=== PATIENT | male | born 1965 | race Caucasian/White ===

== ENCOUNTER 2020-10-06 11:03 | Emergency (ER) | payer BC, SELFPAY ==
[2020-10-06 11:05] VITALS: BP 155/85; PULSE 94; RESP 14; TEMP 36.7; O2SAT 95; BMI 33.7
--- NOTE | 2020-10-06 11:30 | HMH.EDUTC ---
[facility] [place] Clinical Impression: Exposure to COVID-19 virus, Fever blister Disposition: Home, Self-Care Condition on Discharge: Good Instructions: DI for Cold Sores, DI for COVID-19 (Suspected or Confirmed ), Preventing the Spread of Coronavirus Discharge Instructions Additional Instructions: Drink plenty of fluids. Take tylenol for pain or fever. Return if you begin to have difficulty breathing. Follow up with your regular doctor. GO TO THE ER FOR ANY WORSENING SYMPTOMS Prescriptions: Acyclovir [Zovirax 5% ointment 5gm] 1 applicatio TP 5XDAY 4 Days #1 tube Transmission Status: Received by [id number] Referrals: Juan Torres MD [Primary Care Provider] - Time of Disposition: 11:40 Medical Decision Making - Medical Records Medical records reviewed: No: I reviewed the patient's medical records. - [place] Inquiry Pt receiving controlled substance: No Vital Signs: 10/06/20 11:05 10/06/20 11:43 Temperature 98.1 F 98.1 F Temperature Source Oral Pulse Rate 94 H Pulse Rate [Right Brachial] 94 H Respiratory Rate 14 14 Blood Pressure 155/85 H Blood Pressure [Right Arm] 155/85 H Blood Pressure Mean [Right Arm] 108 Blood Pressure Source [Right Arm] Automatic Cuff Blood Pressure Position [Right Arm] Sitting 02 Sat by Pulse Oximetry 95 Oxygen Delivery Method Room Air [facility] [place] - General Stated complaint: covid exposure Time Seen by Provider: 10/06/20 11:30 Mode of Arrival: Ambulatory Source of Information: Patient Limitations: No Limitations Description of Symptoms (Recalled from Triage Doc. by RN): PATIENT REQUESTING COVID TEST D/T EXPOSURE. C/O SINUS CONGESTION X 1 DAYS AND FEVER BLISTERS THAT STARTED THURSDAY HEENT Symptoms (Recalled from RN notes): Yes Resp Symptoms (Recalled from RN notes): No Skin Symptoms (Recalled from RN notes): Yes MS Symptoms (Recalled from RN notes): No Functional Status (Recalled from RN notes): WNL - History of Present Illness Provider Complaint: He states that for the past 1 day he has had some sinus congestion and sinus drainage. He also had a fever blister on is top lip that has been there for the past 3 days. He was exposed to covid at his job. - Related Data Home Medications Medication Instructions Recorded Confirmed Atorvastatin Calcium [Atorvastatin 10 mg PO DAILY 02/20/18 10/06/20 10mg Tab] Metformin HCl [Glucophage 500mg 1,000 mg PO DAILY 02/20/18 10/06/20 Tablet] Previous Rx's Medication Instructions Recorded Acyclovir [Zovirax 5% ointment 5gm] 1 applicatio TP 5XDAY 4 Days #1 10/06/20 tube Allergies Allergy/AdvReac Type Severity Reaction Status Date / Time No Known Allergies Allergy Verified 02/20/18 10:11 - Worker's Comp Is this a Worker's Comp case?: No [facility] History - Hepatitis A Screen Drug use history?: No High risk sexual behaviors?: No History of sexually transmitted infection?: No Currently employed?: No Childcare worker?: No Do you have indoor plumbing?: Yes Do you have electricity?: Yes Attestation statement:: This patient has been screened for Hepatitis A risk factors. I have reviewed the patient's past medical history: Yes Medical History: Reports:: Diabetes Mellitus Type 2 Denies:: Diabetes Mellitus Type 1 - Social History Smoking Status: Never smoker Alcohol Intake: never Occupational Status: other ROS Obtained: Yes All systems reviewed & no additional complaints - Constitutional Constitutional: Reports system reviewed and no additional complaints, except as docu - Eyes Eyes: Reports system reviewed and no additional complaints, except as docu - ENT Ears, Nose, Mouth, and Throat: Reports system reviewed and no additional complaints, except as docu - Cardiovascular Cardiovascular: Reports system reviewed and no additional complaints, except as docu - Respiratory Respiratory: Reports system reviewed and no additional complaints, except as docu - [place]
[2020-10-06 11:43] VITALS: BP 155/85; PULSE 94; RESP 14; TEMP 36.7; O2SAT 95
--- NOTE | 2020-10-07 09:52 | PC.NURSE ---
patient notified of positive covid results
== END 2020-10-06 11:45 | disposition home or self-care (01) ==
PROVIDERS: Emergency Provider Nurse Practitioner Family; PCP Family Medicine
DX: U07.1 COVID-19 (principal); E11.9 Type 2 diabetes mellitus without complications; E78.5 Hyperlipidemia, unspecified; B00.1 Herpesviral vesicular dermatitis; Z79.899 Other long term (current) drug therapy
CPT/HCPCS: 99202; G0463; U0003

== ENCOUNTER 2022-10-22 13:11 | Observation (INO) | payer BC, SELFPAY ==
[2022-10-22] VITALS (10 sets, daily range): BP systolic 132–174; BP diastolic 72–92; PULSE 112–137; RESP 18–25; TEMP 36.4–36.9; O2SAT 95–100; BMI 34.0; BMI 31.4; BMI 32.1
[2022-10-22 13:57] LABS: Alanine Aminotransferase 34 U/L (12-78); Albumin Level 5.8 g/dl (3.5-5.0); Albumin/Globulin Ratio 1.4 (1.1-1.8); Alkaline Phosphatase 80 U/L (38-126); Anion Gap 36.9 mEq/L (5-15); Aspartate Amino Transferase 35 U/L (17-59); Blood Urea Nitrogen 21 mg/dl (9-20); Calcium 9.1 mg/dl (8.4-10.2); Chloride 99 mmol/L (98-107); Creatinine Clearance Estimated 75 mL/min (50-200); Estimated Glomerular Filt Rate 48 ml/min (>60); GFR (African American) 59 ML/MIN (>60); Globulin 4.2 g/dL (1.3-3.2); Glucose 276 mg/dl (74-100); Potassium 3.9 mmoL/L (3.5-5.1); Sodium 138 mmol/L (136-145)
[2022-10-22 14:04] LABS: Lipase 293 U/L (23-300)
[2022-10-22 14:04] LABS: Carbon Dioxide 6 mmol/L (22.0-30.0)
--- NOTE | 2022-10-22 14:04 | HMH.EDGENADL ---
Discharge Plan Disposition Patient Disposition: Admitted As Inpatient Condition: Fair Clinical Impressions Clinical Impression: Diabetic keto-acidosis Discharge ED Provider: Amando Ontiveros General Adult HPI General Chief complaint: Nausea/Vomiting/Diarrhea Stated complaint: vomiting blood, can't sleep Time Seen by Provider: 10/22/22 13:48 Mode of Arrival: Ambulatory Limitations: No Limitations Description of Symptoms (Recalled from ER Triage Doc. by RN): PT STARTED ON NEW DIABETES MEDICATION LAST WEEK ON THURSDAY. PT C/O N/V/D AND DECREASED APPETITE. History of Present Illness HPI narrative: Patient presents with a 2 to 3-day history of vomiting and diarrhea. Symptoms again approximately 2 days after starting new medication for his diabetes. Symptoms are described as moderate without exacerbating alleviating factors. He states its been a couple of days since he had diarrhea but the vomiting persists. He denies abdominal pain he denies fever. Related Data Home Medications Medication Instructions Recorded Confirmed atorvastatin 10 mg tablet 10 mg PO DAILY Cholesterol 02/20/18 10/06/20 metformin 500 mg tablet 1,000 mg PO DAILY Diabetes 02/20/18 10/06/20 Previous Rx's Medication Instructions Recorded acyclovir 5 % topical ointment 1 applicatio TP 5XDAY 4 days #1 10/06/20 tube Allergies Allergy/AdvReac Type Severity Reaction Status Date / Time No Known Allergies Allergy Verified 02/20/18 10:11 [facility] Disclaimer: The information contained in this section may have been updated after the patient was seen, as this information can be updated by other users. Social History Smoking Status: Never smoker alcohol intake: never current occupational status: other Travel in the last 8 weeks: None ROS Obtained: Yes All systems reviewed & no additional complaints except as documented Physical Exam General General appearance: alert and in no apparent distress Head Head exam: atraumatic Eye Eye exam: Present normal appearance ENT ENT exam: Present normal exam and normal oropharynx Neck Neck exam: Present normal inspection Chest Chest inspection: Present normal inspection Respiratory Respiratory exam: Present normal lung sounds bilaterally and respiratory distress Cardiovascular Cardiovascular exam: Present normal rhythm and tachycardia Abdominal Exam Abdominal exam: Present soft; Absent tenderness Extremities Exam Extremities exam: Present normal inspection Back Exam Back exam: Present normal inspection Neurological Exam Neurological exam: Present alert and oriented X3 Psychiatric Psychiatric exam: Present normal affect Skin Skin exam: Present warm and dry Medical Decision Making [place] Inquiry Pt receiving controlled substance: No Vital Signs: 10/22/22 13:13 10/22/22 14:15 Temperature 98.0 F Temperature Source Oral Pulse Rate 124 H Pulse Rate [Radial] 126 H Respiratory Rate 18 Blood Pressure 147/85 H Blood Pressure [Right Arm] 153/83 H Blood Pressure Mean [Right Arm] 106 Blood Pressure Source [Right Arm] Automatic Cuff Blood Pressure Position [Right Arm] Sitting 02 Sat by Pulse Oximetry 98 95 Oxygen Delivery Method Room Air Lab Data Lab Results 10/22/22 11:30: Sodium 138, Potassium 3.9, Chloride 99, Carbon Dioxide 6 L*, Anion Gap 36.9 H, BUN 21 H, Creatinine 1.50 H, Estimated Creat Clear 75, Estimated GFR 48 L, Est GFR ( Amer) 59, Glucose 276 H, Calcium 9.1, Total Bilirubin 1.0, AST 35, ALT 34, Alkaline Phosphatase 80, Total Protein 10.0 H, Albumin 5.8 H, Globulin 4.2 H, Albumin/Globulin Ratio 1.4 10/22/22 11:30: WBC 8.4, RBC 6.09, Hgb 18.2 H, Hct 55.8 H, MCV 91.6, MCH 29.9, MCHC 32.7, RDW 13.7, Plt Count 330, MPV 8.8, Neut % (Auto) 88.8 H, Lymph % (Auto) 7.1 L, [place] % (Auto) 3.7, Eos % (Auto) 0.0 L, Baso % (Auto) 0.3, Neut # (Auto) 7.5, Lymph # (Auto) 0.6 L, [place] # (Auto) 0.3, Eos # (Auto) 0.0, Baso # (Au
[2022-10-22 14:09] LABS: Basophils % 0.3 % (0.1-2.0); Monocytes # 0.3 K/mm3 (0.1-1.0); Red Cell Distribution Width 13.7 % (11.5-17.5)
--- NOTE | 2022-10-22 14:09 | PC.NURSE ---
Marquita from lab called critical on patient, report taken and repeated to verify CO2 6
[2022-10-22 14:15] LABS: Hematocrit 55.8 % (42.0-52.0); Lymphocytes # 0.6 K/mm3 (0.7-4.5); Lymphocytes % 7.1 % (10-50); Mean Corpuscular HGB Conc 32.7 g/dL (31.8-35.4); Mean Corpuscular Hemoglobin 29.9 pg (27.0-31.2); Mean Corpuscular Volume 91.6 fl (80-94); Mean Platelet Volume 8.8 fl (7.4-10.4); Monocytes % 3.7 % (1.7-9.3); Neutrophils # 7.5 K/mm3 (1.8-7.8); Neutrophils % 88.8 % (37.0-80.0); Platelet Count 330 K/mm3 (142-424); Red Blood Count 6.09 M/mm3 (4.60-6.20); White Blood Count 8.4 K/mm3 (4.8-10.8)
[2022-10-22 14:16] LABS: Hemoglobin 18.2 g/dL (14.1-18.0); MANUAL DIFFERENTIAL MANUAL DIFFERENTIAL (MANUAL DIFF)
[2022-10-22 14:29] LABS: Lymphocytes % 10 % (10-50); Monocytes % 1 % (2-9); Neutrophils % 89 % (42-76); Platelet Estimate Normal; RBC Morphology Normal; Total Cells Counted 100
[2022-10-22 15:18] LABS: ABG Base Excess -19.9 mmol/L (-2.4-2.3); ABG HCO3 7.9 mmhg (22.0-26.0); ABG Oxygen Saturation 98 % (90-100); ABG PH 7.22 mmol/L (7.35-7.45); ABG PO2 99.7 mmhg (80-100); ABG TCO2 8.5 mmhg (23-27)
[2022-10-22 15:20] LABS: Oxygen room air %
[2022-10-22 15:21] LABS: ABG PCO2 19.9 mmhg (35.0-45.0)
--- NOTE | 2022-10-22 15:31 | PC.NURSE ---
DR. HAIDER SPEAKING WITH DR. GILL
[2022-10-22 15:33] LABS: Coronavirus 19, PCR Not Detected (NotDetected); Influenza A, PCR Not Detected (NotDetected); Influenza B, PCR Not Detected (NotDetected)
--- NOTE | 2022-10-22 15:34 | PC.NURSE ---
Shelli from respiratory called criticals on patient. pH7.22, CO2 19.9, Bicarb7.9, Miguel Ángel [id number], Lactic 3.4
--- NOTE | 2022-10-22 15:44 | PC.NURSE ---
CARE MANAGEMENT NOTIFIED OF ADMISSION
--- NOTE | 2022-10-22 16:30 | PC.NURSE ---
SPOKE WITH HOUSE FOR ADMISSION TO STEP DOWN ROOM
[2022-10-22 16:31] LABS: POC Glucose,Bedside 147 (70-110)
--- NOTE | 2022-10-22 16:36 | PC.NURSE ---
INSULIN GTT OFF AT THIS TIME. FSBS 147. PER ED MD VERBAL ORDER
--- NOTE | 2022-10-22 16:38 | PC.NURSE ---
REPORT GIVEN TO Nghia BRICENO RN
--- NOTE | 2022-10-22 17:58 | PC.NURSE ---
arrived to floor by wheelchair from ED
[2022-10-22 18:28] LABS: POC Glucose,Bedside 173 (70-110)
--- NOTE | 2022-10-22 18:39 | EXP.HP ---
History of Present Illness *Admission Date: 10/22/22 *Reason for visit:: vomiting *History of present illness: 57 year old male patient of [facility] presented to [facility] ER today complaining of a 3 day history of vomiting and abdominal pain. The first two days he had a couple of episodes of diarrhea, but none today. He did not a small amount of bright red blood in his emesis this morning. Patient has a history of type 2 diabetes. His A1c was 9.5% in the office last week so he was started on Rybelsus 3 mg daily and his Xigduo dose was double to the maximum dose. [facility] Disclaimer: The information contained in this section may have been updated after the patient was seen, as this information can be updated by other users. Medical History (Updated 10/22/22 @ 18:47 by Juan Torres MD) Diabetes mellitus, type 2 Hyperlipidemia Hypertension Non morbid obesity Family History (Updated 10/22/22 @ 18:19 by Peace Wooten RN) Family history of cancer Family history of hypertension Family history of diabetes mellitus type II Social History (Updated 10/22/22 @ 18:19 by Peace Wooten RN) Smoking Status: Never smoker alcohol intake: never current occupational status: retired and other Travel in the last 8 weeks: None Review of Systems Constitutional Constitutional: Denies chills, Denies fever(s) and Reports weakness (generalized) Eyes Eyes: Denies blurry vision ENT Ears, Nose, Mouth, and Throat: Denies epistaxis *Cardiovascular Cardiovascular: Denies chest pain *Respiratory Respiratory: Denies cough *Gastrointestinal Gastrointestinal: Reports as per HPI *Genitourinary Genitourinary: Denies difficulty urinating *Musculoskeletal Musculoskeletal: Denies arthralgias Integumentary/Breasts Skin/Breast: Denies rash *Neurologic Neurologic: Reports weakness (generalized) Meds Home Medications and Allergies Home Medications Medication Instructions Recorded Confirmed Type atorvastatin 10 mg tablet 10 mg PO DAILY Cholesterol 02/20/18 10/22/22 History dapagliflozin 5 mg-metformin ER 5 - 1,000 tab PO ONCE Diabetes 10/22/22 10/22/22 History 1,000 mg tablet,extended release 24hr (Xigduo XR) irbesartan 300 300 tab PO DAILY Hypertension 10/22/22 10/22/22 History mg-hydrochlorothiazide 12.5 mg tablet semaglutide 7 mg tablet (Rybelsus) 3 mg PO DAILY Diabetes 10/22/22 10/22/22 History New Prescriptions to Start Prescriptions: Allergies Allergy/AdvReac Type Severity Reaction Status Date / Time No Known Allergies Allergy Verified 02/20/18 10:11 Exam Data for Last 24 hours Vital signs and Labs for Last 24 Hours: Temp Pulse Resp BP Pulse Ox 98.5 F 112 H 18 132/73 98 10/22/22 17:55 10/22/22 17:55 10/22/22 17:55 10/22/22 17:55 10/22/22 16:30 Laboratory Results - last 24 hr 10/22/22 11:30: Sodium 138, Potassium 3.9, Chloride 99, Carbon Dioxide 6 L*, Anion Gap 36.9 H, BUN 21 H, Creatinine 1.50 H, Estimated Creat Clear 75, Estimated GFR 48 L, Est GFR ( Amer) 59, Glucose 276 H, Calcium 9.1, Total Bilirubin 1.0, AST 35, ALT 34, Alkaline Phosphatase 80, Total Protein 10.0 H, Albumin 5.8 H, Globulin 4.2 H, Albumin/Globulin Ratio 1.4 10/22/22 11:30: WBC 8.4, RBC 6.09, Hgb 18.2 H, Hct 55.8 H, MCV 91.6, MCH 29.9, MCHC 32.7, RDW 13.7, Plt Count 330, MPV 8.8, Neut % (Auto) 88.8 H, Lymph % (Auto) 7.1 L, [place] % (Auto) 3.7, Eos % (Auto) 0.0 L, Baso % (Auto) 0.3, Neut # (Auto) 7.5, Lymph # (Auto) 0.6 L, [place] # (Auto) 0.3, Eos # (Auto) 0.0, Baso # (Auto) 0.0, Total Counted 100, Neutrophils % (Manual) 89 H, Lymphocytes % (Manual) 10, Monocytes % (Manual) 1 L, Platelet Estimate Normal, RBC Morphology Normal 10/22/22 13:30: Lipase 293 10/22/22 14:50: SARS-CoV-2 (PCR) Not detected, Influenza A Untype (PCR) Not detected, Influenza Type B (PCR) Not detected 10/22/22 14:59: Specimen Source l brachial, O2 % room air, ABG pH 7.22 L*, ABG pCO2 19.9 L, ABG pO2 99.7, ABG HCO3 7.9 L, ABG Total CO
[2022-10-23] VITALS (15 sets, daily range): BP systolic 114–143; BP diastolic 65–85; PULSE 81–124; RESP 16–24; TEMP 36.4–36.9; O2SAT 95–99; BMI 32.3; BMI 36.6
--- NOTE | 2022-10-23 04:59 | PC.NURSE ---
pt restless this shift, pt states he can't sleep, offered tylenol and pt declined, telemetry reveals sinus tach, pts hr noted to be up to 150 upon ambulation at bedside to urinate, pt states he still feels weak, b/p stable, no acute distress, skin pwd, no other issues or concerns noted at this time.
[2022-10-23 06:30] LABS: POC Glucose,Bedside 194 (70-110)
[2022-10-23 06:30] LABS: POC Glucose,Bedside 172 (70-110)
[2022-10-23 06:40] LABS: Basophils % 0.3 % (0.1-2.0)
[2022-10-23 06:47] LABS: Chloride 109 mmol/L (98-107); Hematocrit 47.8 % (42.0-52.0); Lymphocytes # 1.1 K/mm3 (0.7-4.5); Lymphocytes % 12.7 % (10-50); Mean Corpuscular HGB Conc 32.8 g/dL (31.8-35.4); Mean Corpuscular Hemoglobin 29.4 pg (27.0-31.2); Mean Corpuscular Volume 89.4 fl (80-94); Mean Platelet Volume 8.4 fl (7.4-10.4); Monocytes # 0.6 K/mm3 (0.1-1.0); Monocytes % 6.1 % (1.7-9.3); Neutrophils # 7.3 K/mm3 (1.8-7.8); Neutrophils % 80.9 % (37.0-80.0); Platelet Count 260 K/mm3 (142-424); Potassium 3.6 mmoL/L (3.5-5.1); Red Blood Count 5.34 M/mm3 (4.60-6.20); Sodium 137 mmol/L (136-145)
[2022-10-23 06:48] LABS: Hemoglobin 15.7 g/dL (14.1-18.0)
[2022-10-23 06:50] LABS: Anion Gap 17.6 mEq/L (5-15); Blood Urea Nitrogen 16 mg/dl (9-20); Calcium 7.9 mg/dl (8.4-10.2); Carbon Dioxide 14 mmol/L (22.0-30.0); Creatinine Clearance Estimated 116 mL/min (50-200); Estimated Glomerular Filt Rate 77 ml/min (>60); GFR (African American) 94 ML/MIN (>60); Glucose 181 mg/dl (74-100)
--- NOTE | 2022-10-23 08:23 | EXP.ACUTE.PN ---
Subjective *Date: 10/23/22 *Time: 09:00 Interval history: Patient is feeling better this am. He denies any pain and has been eating without problems. Medical Exam Vital signs and Labs for Last 24 Hours: Vital Signs Temp Pulse Pulse Resp BP BP Pulse Ox 10/23/22 08:00 100 H 20 137/77 97 10/23/22 07:38 97.7 F 10/23/22 06:00 98 H 24 119/65 98 10/23/22 05:00 97 H 24 120/70 99 10/23/22 04:00 97.7 F 10/23/22 04:00 110 H 10/23/22 04:00 101 H 21 117/67 97 10/23/22 03:55 101 H 96 10/23/22 00:00 112 H 10/23/22 02:00 114 H 16 120/68 95 10/23/22 00:00 124 H 21 131/72 98 10/23/22 00:00 98.3 F 10/22/22 20:00 113 H 10/22/22 22:00 123 H 24 174/92 H 98 10/22/22 20:00 120 H 97 10/22/22 20:00 97.5 F L 122 H 25 H 149/72 H 99 10/22/22 20:00 97.5 F L 10/22/22 17:55 98.5 F 112 H 18 132/73 10/22/22 16:30 137 H 132/73 98 10/22/22 16:00 131 H 144/73 H 99 10/22/22 15:30 127 H 148/81 H 98 10/22/22 15:00 123 H 139/77 100 10/22/22 14:30 127 H 143/74 H 100 10/22/22 14:15 124 H 147/85 H 95 10/22/22 13:13 98.0 F 126 H 18 153/83 H 98 Intake and Output 10/22/22 10/23/22 10/23/22 19:59 03:59 11:59 Intake Total 1646 / 1646 Output Total 0 / 1600 1600 / 1600 Balance 0 / 46 -1600 / 46 1646 / 46 Intake: Intake, Oral Amount 240 / 240 Intake, Total IV Amount 1406 / 1406 D5W/0.45% NaCl w/20mEq KCL 1, 1406 / 1406 000 ml @ 125 mls/hr IV .Q8H [facility] Rx#:[id number] Output: Output, Urine Amount 0 / 1600 1600 / 1600 Other: Number of Unmeasured Voids 1 0 Weight 218 lb 0.595 oz 218 lb 4.122 oz Patient Weight 10/23/22 11:59 Weight 218 lb 4.122 oz Laboratory Results - last 24 hr 10/22/22 11:30: Sodium 138, Potassium 3.9, Chloride 99, Carbon Dioxide 6 L*, Anion Gap 36.9 H, BUN 21 H, Creatinine 1.50 H, Estimated Creat Clear 75, Estimated GFR 48 L, Est GFR ( Amer) 59, Glucose 276 H, Calcium 9.1, Total Bilirubin 1.0, AST 35, ALT 34, Alkaline Phosphatase 80, Total Protein 10.0 H, Albumin 5.8 H, Globulin 4.2 H, Albumin/Globulin Ratio 1.4 10/22/22 11:30: WBC 8.4, RBC 6.09, Hgb 18.2 H, Hct 55.8 H, MCV 91.6, MCH 29.9, MCHC 32.7, RDW 13.7, Plt Count 330, MPV 8.8, Neut % (Auto) 88.8 H, Lymph % (Auto) 7.1 L, [place] % (Auto) 3.7, Eos % (Auto) 0.0 L, Baso % (Auto) 0.3, Neut # (Auto) 7.5, Lymph # (Auto) 0.6 L, [place] # (Auto) 0.3, Eos # (Auto) 0.0, Baso # (Auto) 0.0, Total Counted 100, Neutrophils % (Manual) 89 H, Lymphocytes % (Manual) 10, Monocytes % (Manual) 1 L, Platelet Estimate Normal, RBC Morphology Normal 10/22/22 13:30: Lipase 293 10/22/22 14:50: SARS-CoV-2 (PCR) Not detected, Influenza A Untype (PCR) Not detected, Influenza Type B (PCR) Not detected 10/22/22 14:59: Specimen Source l brachial, O2 % room air, ABG pH 7.22 L*, ABG pCO2 19.9 L, ABG pO2 99.7, ABG HCO3 7.9 L, ABG Total CO2 8.5 L, ABG O2 Saturation 98, ABG Base Excess -19.9 L 10/22/22 16:24: POC Glucose 147 H 10/22/22 18:15: POC Glucose 173 H 10/22/22 21:17: POC Glucose 194 H 10/23/22 05:35: WBC 9.0, RBC 5.34, Hgb 15.7 D, Hct 47.8, MCV 89.4, MCH 29.4, MCHC 32.8, RDW 14.0, Plt Count 260, MPV 8.4, Neut % (Auto) 80.9 H, Lymph % (Auto) 12.7, [place] % (Auto) 6.1, Eos % (Auto) 0.0 L, Baso % (Auto) 0.3, Neut # (Auto) 7.3, Lymph # (Auto) 1.1, [place] # (Auto) 0.6, Eos # (Auto) 0.0, Baso # (Auto) 0.0 10/23/22 05:35: Sodium 137, Potassium 3.6, Chloride 109 H, Carbon Dioxide 14 L, Anion Gap 17.6 H, BUN 16, Creatinine 1.00 D, Estimated Creat Clear 116, Estimated GFR 77, Est GFR ( Amer) 94 D, Glucose 181 H D, Calcium 7.9 L 10/23/22 06:18: POC Glucose 172 H I & O for Labs for Last 24 Hours: Intake & Output 10/20/22 10/21/22 10/22/22 10/23/22 11:59 11:59 11:59 11:59 Intake Total 1646 / 1646 Output Total 1600 / 1600 Balance 46 / 46 Weight 218 lb 4.122 oz Respirator
--- NOTE | 2022-10-23 08:39 | P.CONPHA_ITS ---
Pharmacy Intervention Comments: HOME MEDICATION LIST VERIFIED USING LIST FROM COUNTS INCLUDE 234 BEDS AT THE [facility]
--- NOTE | 2022-10-23 08:39 | HMH.PHAINT1 ---
Pharmacy Intervention Comments: HOME MEDICATION LIST VERIFIED USING LIST FROM [facility]
[2022-10-23 11:10] LABS: POC Glucose,Bedside 172 (70-110)
--- NOTE | 2022-10-23 13:37 | DIET.NUTRFU ---
Patient tolerated full liquids for both breakfast and lunch, consulted provider to advance diet, approved diabetic diet. Provided multiple diabetic handouts to help with compliance. Also provided contact information and process to see RD as outpatient.
[2022-10-23 17:46] LABS: POC Glucose,Bedside 157 (70-110)
--- NOTE | 2022-10-23 19:51 | PC.NURSE ---
pt has rested t/o shift, no complaints of pain or nausea, FS have been 172 and 157, pt was provided on education on administering insulin to himself, pt was able to give his dose of lantus, pt had no questions about the process
[2022-10-24] VITALS: PULSE 88; PULSE 89
--- NOTE | 2022-10-24 03:12 | PC.NURSE ---
PATIENT TEACHING ONGOING ON INSULIN ADMINISTRATION. PATIENT DENIES PAIN/DISCOMFORT. INDEPENDENT. SINUS RHYTHM ON TELEMETRY.
[2022-10-24 04:00] VITALS: BP 116/72; PULSE 90; PULSE 98; RESP 16; TEMP 36.9; O2SAT 98; BMI 30.6
[2022-10-24 04:28] VITALS: PULSE 90
[2022-10-24 05:18] LABS: POC Glucose,Bedside 140 (70-110)
[2022-10-24 06:35] LABS: Basophils % 0.5 % (0.1-2.0); Eosinophils % 0.3 % (0.1-12.0); Hematocrit 39.8 % (42.0-52.0); Hemoglobin 13.4 g/dL (14.1-18.0); Lymphocytes # 1.7 K/mm3 (0.7-4.5); Lymphocytes % 22.4 % (10-50); Mean Corpuscular HGB Conc 33.7 g/dL (31.8-35.4); Mean Corpuscular Hemoglobin 29.6 pg (27.0-31.2); Mean Corpuscular Volume 87.7 fl (80-94); Mean Platelet Volume 7.6 fl (7.4-10.4); Monocytes # 0.3 K/mm3 (0.1-1.0); Monocytes % 3.8 % (1.7-9.3); Neutrophils # 5.4 K/mm3 (1.8-7.8); Platelet Count 179 K/mm3 (142-424); Red Blood Count 4.54 M/mm3 (4.60-6.20); Red Cell Distribution Width 14.1 % (11.5-17.5); White Blood Count 7.4 K/mm3 (4.8-10.8)
[2022-10-24 06:36] LABS: Chloride 110 mmol/L (98-107); Sodium 138 mmol/L (136-145)
[2022-10-24 06:37] LABS: Potassium 3.4 mmoL/L (3.5-5.1)
[2022-10-24 06:39] LABS: Blood Urea Nitrogen 13 mg/dl (9-20); Creatinine Clearance Estimated 171 mL/min (50-200); Estimated Glomerular Filt Rate 117 ml/min (>60); GFR (African American) 141 ML/MIN (>60)
[2022-10-24 06:40] LABS: Anion Gap 11.4 mEq/L (5-15); Calcium 7.8 mg/dl (8.4-10.2); Carbon Dioxide 20 mmol/L (22.0-30.0); Glucose 161 mg/dl (74-100)
[2022-10-24 08:00] VITALS: BP 135/75; PULSE 101; PULSE 93; RESP 22; TEMP 36.6; O2SAT 95
--- NOTE | 2022-10-24 08:35 | EXP.ACUTE.PN ---
Subjective *Date: 10/24/22 *Time: 09:05 Interval history: Patient is feeling well this am. He is eating and drinking well and denies any pain. He slept better last night and is anxious to go home. Medical Exam Vital signs and Labs for Last 24 Hours: Vital Signs Temp Pulse Pulse Resp BP Pulse Ox 10/24/22 04:28 90 10/24/22 04:00 90 10/24/22 04:00 98.5 F 98 H 16 116/72 98 10/24/22 00:00 88 10/23/22 20:00 100 H 10/24/22 00:00 89 10/23/22 20:00 99 10/23/22 20:00 100 H 10/23/22 23:41 98.5 F 100 H 20 114/69 95 10/23/22 20:00 98.4 F 99 H 17 118/66 99 10/23/22 16:00 99 H 20 138/75 99 10/23/22 16:00 100 H 10/23/22 12:00 100 H 10/23/22 15:15 97.8 F 83 19 120/72 96 10/23/22 11:41 97.5 F L 81 20 143/85 H 95 10/23/22 11:34 98.2 F 97 H 20 131/71 96 Intake and Output 10/23/22 10/24/22 10/24/22 19:59 03:59 11:59 Intake Total 2538 / 3636 1098 / 3636 Output Total 500 / 1300 800 / 1300 Balance 2038 / 2336 -800 / 2336 1098 / 2336 Intake: Intake, Oral Amount 1080 / 1080 Intake, Total IV Amount 1458 / 2556 1098 / 2556 D5W/0.45% NaCl w/20mEq KCL 1, 1458 / 2556 1098 / 2556 000 ml @ 125 mls/hr IV .Q8H [facility] Rx#:[id number] Output: Output, Urine Amount 500 / 1300 800 / 1300 Other: Number of Unmeasured Voids 2 Weight 225 lb 15.581 oz Patient Weight 10/24/22 11:59 Weight 225 lb 15.581 oz Laboratory Results - last 24 hr 10/23/22 11:03: POC Glucose 172 H 10/23/22 17:04: POC Glucose 157 H 10/24/22 05:11: POC Glucose 140 H 10/24/22 06:02: WBC 7.4, RBC 4.54 L, Hgb 13.4 L, Hct 39.8 L, MCV 87.7, MCH 29.6, MCHC 33.7, RDW 14.1, Plt Count 179 D, MPV 7.6, Neut % (Auto) 73.0, Lymph % (Auto) 22.4, [place] % (Auto) 3.8, Eos % (Auto) 0.3, Baso % (Auto) 0.5, Neut # (Auto) 5.4, Lymph # (Auto) 1.7, [place] # (Auto) 0.3, Eos # (Auto) 0.0, Baso # (Auto) 0.0 10/24/22 06:02: Sodium 138, Potassium 3.4 L, Chloride 110 H, Carbon Dioxide 20 L, Anion Gap 11.4, BUN 13, Creatinine 0.70 D, Estimated Creat Clear 171, Estimated GFR 117, Est GFR ( Amer) 141 D, Glucose 161 H, Calcium 7.8 L I & O for Labs for Last 24 Hours: Intake & Output 10/21/22 10/22/22 10/23/22 10/24/22 11:59 11:59 11:59 11:59 Intake Total 1646 / 1646 3636 / 3636 Output Total 2100 / 2100 1300 / 1300 Balance -454 / -454 2336 / 2336 Weight 270 lb 225 lb 15.581 oz Constitutional: Present no acute distress Respiratory: Present CTA bilaterally Cardiac: Present Reg Rate and Rhythm GI: Present soft; Absent distention or tenderness Extremities: Absent edema Skin: Present intact Neuro: Present alert, awake and oriented x 3 Assessment and Plan *Assessment and plan (1) Diabetic keto-acidosis: Status: Acute Category: Medical Code(s): E11.10 - Type 2 diabetes mellitus with ketoacidosis without coma (2) SLAVA (acute kidney injury): Status: Acute Category: Medical Code(s): N17.9 - Acute kidney failure, unspecified (3) Tachycardia: Status: Acute Category: Medical Code(s): R00.0 - Tachycardia, unspecified (4) Dehydration: Status: Acute Category: Medical Code(s): E86.0 - Dehydration (5) Diabetes mellitus, type 2: Status: Acute Category: Medical Code(s): E11.9 - Type 2 diabetes mellitus without complications (6) Hypertension: Status: Acute Category: Medical Code(s): I10 - Essential (primary) hypertension (7) Hematemesis: Status: Acute Category: Medical Code(s): K92.0 - Hematemesis Plan Patient can likely be discharged home today. He is much improved. Dr. Torres entry - Saw patient, agree with above note. OK to discharge today on Metformin and Lantus 10 units per day, office f/u in 1 week.
[2022-10-24 12:42] LABS: POC Glucose,Bedside 146 (70-110)
--- NOTE | 2022-10-27 13:48 | CARE MANAGER ---
Spoke with patient for post-discharge phone interview, no issues noted.
--- NOTE | 2022-10-27 15:10 | EXP.DC.SUM ---
General Admission date:: 10/22/22 Discharge date: 10/24/22 HPI HPI HPI: 57 year old male patient of [facility] presented to [facility] ER today complaining of a 3 day history of vomiting and abdominal pain. The first two days he had a couple of episodes of diarrhea, but none today. He did note a small amount of bright red blood in his emesis this morning. Patient has a history of type 2 diabetes. His A1c was 9.5% in the office last week so he was started on Rybelsus 3 mg daily and his Xigduo dose was double to the maximum dose. Hospital Course Hospital Course Hospital Course: . On admission patient was started on IV fluid resuscitation and insulin. By the following day patient was feeling better and blood sugars had improved. He had no further nausea or vomiting and was tolerating his diet. On 10/24/2022 patient had slept well. He was anxious to go home. He continued to tolerate his diet without nausea or vomiting. He was discharged to home on Lantus 10 units daily and metformin. Exam Data for Last 24 hours Vital signs and Labs for Last 24 Hours: Temp Pulse Resp BP Pulse Ox 97.9 F 101 H 22 135/75 95 10/24/22 08:00 10/24/22 08:00 10/24/22 08:00 10/24/22 08:00 10/24/22 08:00 Narrative: Medical Exam Vital signs and Labs for Last 24 Hours: Vital Signs ? Temp Pulse Pulse Resp BP Pulse Ox ?10/24/22 04:28 ? ?90 ?10/24/22 04:00 ? ?90 ?10/24/22 04:00 ?98.5 F ? ?98 H ?16 ?116/72 ?98 ?10/24/22 00:00 ? ?88 ?10/23/22 20:00 ? ?100 H ?10/24/22 00:00 ? ?89 ?10/23/22 20:00 ?99 ?10/23/22 20:00 ? ?100 H ?10/23/22 23:41 ?98.5 F ? ?100 H ?20 ?114/69 ?95 ?10/23/22 20:00 ?98.4 F ? ?99 H ?17 ?118/66 ?99 ?10/23/22 16:00 ? ? ?99 H ?20 ?138/75 ?99 ?10/23/22 16:00 ? ?100 H ?10/23/22 12:00 ? ?100 H ?10/23/22 15:15 ?97.8 F ? ?83 ?19 ?120/72 ?96 ?10/23/22 11:41 ?97.5 F L ? ?81 ?20 ?143/85 H ?95 ?10/23/22 11:34 ?98.2 F ? ?97 H ?20 ?131/71 ?96 Intake and Output ? 10/23/22 10/24/22 10/24/22 ? 19:59 03:59 11:59 Intake Total 2538 / 3636 ? 1098 / 3636 Output Total 500 / 1300 800 / 1300 ? Balance 2038 / 2336 -800 / 2336 1098 / 2336 Intake: ? Intake, Oral Amount 1080 / 1080 ? ? ? Intake, Total IV Amount 1458 / 2556 ? 1098 / 2556 ? ? D5W/0.45% NaCl w/20mEq KCL 1, 1458 / 2556 ? 1098 / 2556 ? ? 000 ml @ 125 mls/hr IV .Q8H LELE ? Rx#:[id number] ? ? ? Output: ? Output, Urine Amount 500 / 1300 800 / 1300 ? Other: ? Number of Unmeasured Voids 2 ? ? ? Weight ? ? 225 lb 15.581 oz Patient Weight ? 10/24/22 ? 11:59 Weight 225 lb 15.581 oz Laboratory Results - last 24 hr 10/23/22 11:03: POC Glucose 172 H 10/23/22 17:04: POC Glucose 157 H 10/24/22 05:11: POC Glucose 140 H 10/24/22 06:02:?WBC 7.4,?RBC 4.54 L,?Hgb 13.4 L,?Hct 39.8 L, MCV 87.7, MCH 29.6, MCHC 33.7, RDW 14.1,?Plt Count 179? D, MPV 7.6, Neut % (Auto) 73.0, Lymph % (Auto) 22.4, [place] % (Auto) 3.8, Eos % (Auto) 0.3, Baso % (Auto) 0.5, Neut # (Auto) 5.4, Lymph # (Auto) 1.7, [place] # (Auto) 0.3, Eos # (Auto) 0.0, Baso # (Auto) 0.0 10/24/22 06:02:?Sodium 138,?Potassium 3.4 L,?Chloride 110 H,?Carbon Dioxide 20 L, Anion Gap 11.4, BUN 13,?Creatinine 0.70? D, Estimated Creat Clear 171, Estimated GFR 117,?Est GFR ( Amer) 141? D,?Glucose 161 H,?Calcium 7.8 L I & O for Labs for Last 24 Hours: Intake & Output ? 10/21/22 10/22/22 10/23/22 10/24/22 ? 11:59 11:59 11:59 11:59 Intake Total ? ? 1646 / 1646 3636 / 3636 Output Total ? ? 2100 / 2100 1300 / 1300 Balance ? ? -454 / -454 2336 / 2336 Weight ? ? 270 lb 225 lb 15.581 oz Constitutional: Present no acute distress Respiratory: Present CTA bilaterally Cardiac: Present Reg Rate and Rhythm GI: Present soft; Absent distention or tenderness Extremities: Absent edema Skin: Present intact Neuro: Present alert, awake and oriented x 3 DS: Diagnosis Discharge Diagnosis (1) Diabetic keto-acidosis: Status: Acute (2) SLAVA (acute kidn
== END 2022-10-24 10:35 | disposition home or self-care (01) ==
LOC: ER 13:50 → 2ND 16:19
PROVIDERS: Admitting Provider Family Medicine; Emergency Provider Emergency Medicine; PCP Family Medicine; Visit Provider Family Medicine
DX: E11.10 Type 2 diabetes mellitus with ketoacidosis without coma (principal); N17.9 Acute kidney failure, unspecified; E86.0 Dehydration; I10 Essential (primary) hypertension; K92.0 Hematemesis; Z79.4 Long term (current) use of insulin; Z79.899 Other long term (current) drug therapy
CPT/HCPCS: 36415; 80048; 80053; 82803; 82962; 83690; 85007; 85025; 99291; C9803; G0378; J2405; U0003; U0005

== ENCOUNTER 2024-02-01 11:05 | Outpatient (CLI) | payer BC, SELFPAY ==
--- NOTE | 2024-02-01 11:16 | XR_ITS ---
FINAL REPORT CLINICAL HISTORY: LEFT SIDED SCIATICA COMPARISON: None FINDINGS: LUMBOSACRAL SPINE SERIES Five views of the lumbosacral spine were obtained. There is no fracture present. There is no malalignment. There is mild and moderate degenerative change. Multilevel osteophytes are noted. There are mild vascular calcifications. IMPRESSION: Mild and moderate degenerative changes without acute process. Reviewed, Interpreted and Dictated by Chandler Cherry III, MD Transcribed by Roseanne Hubbard Authenticated and [facility]
== END 2024-02-01 23:59 | disposition home or self-care (01) ==
LOC: RAD 11:06
PROVIDERS: PCP Family Medicine; Visit Provider Family Medicine
DX: M54.32 Sciatica, left side (principal)
CPT/HCPCS: 72110

== ENCOUNTER 2025-05-01 09:33 | Day surgery (SDC) | payer BC, SELFPAY ==
[2025-05-01 10:16] VITALS: BMI 31.4
[2025-05-01] MEDS: LACTATED RINGERS 1000ML 1,000 ML 50 ML IV (10:18)
[2025-05-01 10:20] VITALS: BP 143/82; PULSE 87; RESP 18; TEMP 36.4; O2SAT 95
--- NOTE | 2025-05-01 10:30 | P.PNANES_ITS ---
[facility] Disclaimer: The information contained in this section may have been updated after the patient was seen, as this information can be updated by other users. Medical History Non morbid obesity Diabetes mellitus, type 2 Hyperlipidemia Hypertension Surgical History (Updated 05/01/25 @ 10:19 by Myrna Baldwin RN) Hx of hernia repair Family History Other Family history of cancer Family history of diabetes mellitus type II Family history of hypertension Social History (Updated 05/01/25 @ 10:19 by Myrna Baldwin RN) Smoking Status: Never smoker alcohol intake: former substance use type: denies use current occupational status: retired Travel in the last 8 weeks?: None [facility] Anesthesia Checklist Patient Identification Patient Identification: Arm Band and Verbal (Name & ) Structural Data Admitted From: Home Planned Operative Procedure/s: colonoscopy Verified Documents: Surgical Consent NPO Status Verified Time NPO: 00:00 Additional verifications Fingerstick Blood Glucose: 114 Anesthesia Reactions: No Airway Assessment Mallampati Score:: Class II C-Spine Mobility Assessed: Yes TMJ Mobility Assessed: Yes Dentition: Good Dentition Neurological Assessment Level of Consciousness: Awake, Alert and Appropriate Hx Seizures: No Numbness or tingling in extremities: No Anesthesia Plan Anesthesia Risk discussed: Yes Anesthesia Plan: Verified ASA Class: II Anesthesia Type: MAC
[2025-05-01 10:32] LABS: POC Glucose,Bedside 114 (70-110)
--- NOTE | 2025-05-01 11:02 | EXP.HP ---
History of Present Illness *Admission Date: 05/01/25 *Reason for visit:: screening for colon cancer *History of present illness: Mr. Miles is a 59-year-old gentleman who is here for initial screening colonoscopy. The examination is deemed medically necessary for screening colonoscopy. The patient has been seen, interviewed and examined prior to the procedure by both myself and the anesthesia provider. [facility] Disclaimer: The information contained in this section may have been updated after the patient was seen, as this information can be updated by other users. Medical History (Updated 05/01/25 @ 11:03 by Curtis Almanza II, MD) Non morbid obesity Diabetes mellitus, type 2 Hyperlipidemia Hypertension Surgical History (Updated 05/01/25 @ 10:19 by Myrna Baldwin RN) Hx of hernia repair Family History Other Family history of cancer Family history of diabetes mellitus type II Family history of hypertension Social History (Updated 05/01/25 @ 10:31 by Anand Lamar CRNA) Smoking Status: Never smoker alcohol intake: former substance use type: denies use current occupational status: retired Travel in the last 8 weeks?: None Have you lived/traveled outside [place] in past 30 days?: No Contact w/someone who lives/traveled outside US past 30 days?: No Exposure to someone with infectious disease in past 14 days?: No Do you have a fever (greater than 100.4 F or 38 C)?: No Have you tested positive for COVID-19?: No Exposed to someone with COVID-19 in past 14 days?: No Do you have a sore throat?: No Do you have a cough?: No Do you have any weakness?: No Are you experiencing any nausea/vomitting?: No Do you have any diarrhea?: No Are you experiencing any unusual bleeding?: No Do you have any muscle aches/pain?: No Do you have any abdominal pain?: No Are you experiencing loss of taste or smell?: No Other Medical History Have you received the Flu Vaccine for this season: No Have you received the Pneumonia Vaccine: No Review of Systems Review of Systems Review of systems (narrative): Negative *Cardiovascular Comments: Negative *Gastrointestinal Comments: Negative *Genitourinary Comments: Negative *Musculoskeletal Comments: Negative *Neurologic Comments: Negative Meds Home Medications and Allergies Home Medications ?Medication ?Instructions ?Recorded ?Confirmed ?Type irbesartan 300 300 tab PO DAILY Hypertension 10/22/22 05/01/25 History mg-hydrochlorothiazide 12.5 mg tablet atorvastatin 20 mg tablet 20 mg PO HS Cholesterol 10/23/22 05/01/25 History metformin 500 mg tablet,extended See Rx Instructions .Route 01/12/23 05/01/25 Rx release 24 hr .COMPLEX #120 tabs semaglutide 2 mg/dose (8 mg/3 mL) 2 mg SQ WEEKLY 05/01/25 05/01/25 History subcutaneous pen injector (Ozempic) New Prescriptions to Start Prescriptions: Allergies Allergy/AdvReac Type Severity Reaction Status Date / Time No Known Allergies Allergy Verified 05/01/25 10:23 Exam Data for Last 24 hours Vital signs and Labs for Last 24 Hours: Temp Pulse Resp BP Pulse Ox O2 Del Method 97.5 F L 87 18 143/82 H 95 Room Air 05/01/25 10:20 05/01/25 10:20 05/01/25 10:20 05/01/25 10:20 05/01/25 10:20 05/01/25 10:20 Laboratory Results - last 24 hr 05/01/25 10:23: POC Glucose 114 H I & O for Last 24 hours: Intake & Output 04/28/25 04/29/25 04/30/25 05/01/25 23:59 23:59 23:59 23:59 Weight 213 lb *Routine HEENT Exam Head: Present normocephalic Eye: Present EOMI and PERRL ENT: Present mucous membranes moist *Routine Neck Exam Neck: Present supple *Routine Respiratory Exam Respiratory: Present CTA bilaterally *Routine Cardiovascular Exam Cardiovascular: Present RRR *Routine Abdominal Exam Abdominal: Present soft and normoactive bowel sounds; Absent tenderness *Routine Rectal Exam Rectal:: deferred *Routine Genitalia Exam Genitalia:: deferred *Routine Extremities Exam Extremities: Absent cyanosis, clubbing or edema *Routine Skin Exam Skin: Present warm; Absent rash *Routine Neurological Exam Neurological: Present alert and oriented X3 Assessment and Plan *Assessment and plan (1) Screening for colon cancer: Status: Acute Category: Medical Code(s): Z12.11 - Encounter for screening for malignant neoplasm of colon Plan A/P: 1. Screen for colon cancer is the preprocedural diagnosis. The patient will be anesthetized/sedated using MAC sedation. The patient has been seen and examined. Cardiac and lung assessment prior to the examination is stable. Proceed with planned screening colonoscopy.
--- NOTE | 2025-05-01 11:11 | P.PCN_ITS ---
[facility] Procedure Note Date: 05/01/25 Time: 11:28 Procedure Note:: Colonoscopy Procedure Report: Colonoscopy with cold snare polypectomy Endoscopist: Curtis Almanza II, MD Referring physician: Juan Torres MD Date of Procedure: May 01, 2025 Equipment: Olympus [id number] adult colonoscope Sedation: MAC sedation Indication: Mr. Miles is a 59-year-old gentleman who is here for initial screening colonoscopy. He reports no abdominal pain, weight loss, rectal bleeding or family history of colon cancer. He does have some alternating constipation and diarrhea which may be related to metformin and/or Ozempic. Procedure: Prior to the procedure, a history and physical exam was performed, and patient's medications and allergies were reviewed. The risks, benefits and alternatives of the sedation and procedure were discussed with the patient. All questions were answered and informed consent was obtained. The patient was brought to the procedure room. Patient identification and proposed procedure were verified by the physician and the nurse. The patient was placed in a left lateral decubitus position and the scope was passed under direct vision. Throughout the procedure, the patient's blood pressure, pulse, and oxygen saturations were monitored continuously. The colonoscopy was accomplished without difficulty. The patient tolerated the procedure well. Findings: On digital rectal examination there was normal rectal tone. There were no external hemorrhoids. The prostate was 2+, smooth, soft, symmetric without nodules. The colonoscope was introduced through the anal canal to the rectum and advanced to the cecum. The ileocecal valve and appendiceal orifice were identified. The scope was advanced a short distance into the ileum which appeared grossly normal. The scope was then withdrawn into the colon. There was a single 6 mm polyp in the sigmoid colon removed via cold snare polypectomy. The remaining cecum, ascending, transverse, descending, sigmoid and rectum were grossly normal. There were no mucosal abnormalities identified. Upon retroflexion within the rectum there were grade 1-2 internal hemorrhoids. The preparation was excellent throughout with [place] Preparation Score of 9. The cecal time was 12 minutes. Impression: 1. Sigmoid colon polyp (6 mm) Plan: I will follow-up the polyp histology and recommend repeat screening/surveillance colonoscopy again in 7 years. I would encourage psyllium bulking fiber supplementation on a maintenance basis.
[2025-05-01 11:32] VITALS: BP 93/59; PULSE 86; RESP 16; TEMP 36.1; O2SAT 97
[2025-05-01 11:42] VITALS: BP 110/73; PULSE 79; RESP 16; O2SAT 98
[2025-05-01 11:52] VITALS: BP 117/76; PULSE 71; RESP 16; O2SAT 96
[2025-05-01 12:02] VITALS: BP 127/80; PULSE 70; RESP 16; O2SAT 96
== END 2025-05-01 12:02 | disposition home or self-care (01) ==
PROVIDERS: PCP Family Medicine; Visit Provider Internal Medicine Gastroenterology
PROC: 0DJD8ZZ Inspection of Lower Intestinal Tract, Via Natural or Artificial Opening Endoscopic (ICD-10-PCS; CPT 45378; principal; 2025-05-01 11:00)
DX: Z12.11 Encounter for screening for malignant neoplasm of colon (principal); D12.5 Benign neoplasm of sigmoid colon; E11.9 Type 2 diabetes mellitus without complications; E78.5 Hyperlipidemia, unspecified; I10 Essential (primary) hypertension; E66.9 Obesity, unspecified; Z79.84 Long term (current) use of oral hypoglycemic drugs; Z79.899 Other long term (current) drug therapy
CPT/HCPCS: 45385; 82962; J2003; J2704; J7120